=== PATIENT | female | born 1965 | race Caucasian/White ===

== ENCOUNTER 2017-04-29 11:28 | Inpatient (IN) | payer MEDICAID ==
[~2017-04-29] VITALS: Ht 165.1 cm; Wt 120.9 kg
[~2017-04-29 11:28] MED LIST: norco; soma
[2017-04-29 12:10] LABS: Basophils # (auto) 0 uL; Basophils % (auto) 0.8 % (0.0-2.0); Eosinophils # (auto) 0.3 uL; Eosinophils % (auto) 4.1 % (0.0-7.0); Hematocrit 41.3 % (36.0-46.0); Hemoglobin 13.6 g/dL (12.2-16.2); Lymphocytes # (auto) 1.4 uL; Lymphocytes % (auto) 22.1 % (10.0-50.0); Mean Corpuscular Hemoglobin 30.5 pg (28.0-32.0); Mean Corpuscular Volume 92.5 fL (80.0-100.0); Monocytes # (auto) 0.4 uL; Monocytes % (auto) 7.1 % (0.0-12.0); Neutrophils # (auto) 4.2 uL; Neutrophils % (auto) 65.9 % (37.0-80.0); Platelet Count (auto) 310 10^3/uL (140-450); Red Cell Distribution Width 13.2 % (11.8-14.3); White Blood Cell 6.3 10^3/uL (4.4-10.8)
[2017-04-29] MEDS ORDERED: SODIUM CHLORIDE 0.9% 1,000 ML IV ONE ×2 (12:28)
[2017-04-29] MEDS ORDERED: ALUM & MAG HYDROX-SIMETH LIQ(MAALOX) 30 ML PO ONE (12:30)
[2017-04-29] MEDS ORDERED: LIDOCAINE VISCOUS 2% 15ML UD PO ONE (12:30)
[2017-04-29] MEDS ORDERED: DONNATAL 5ml ORAL Elix (BELLADONNA ALK-PHENOBARB) PO ONE (12:30)
[2017-04-29 12:48] LABS: Albumin 3.8 g/dL (3.4-5.0); Alkaline Phosphatase 118 U/L (45-117); Anion Gap 5 (5-15); Aspartate Aminotransferase 11 U/L (15-37); BUN/Creatinine Ratio 21.1; Bilirubin, Total 0.3 mg/dL (0.2-1.0); Blood Urea Nitrogen 20 mg/dL (7-18); Calcium 9.4 mg/dL (8.5-10.1); Carbon Dioxide 27 mmol/L (21-32); Chloride 104 mmol/L (98-107); GFR African American 79 mL/min; GFR Non-African American 65 mL/min; Glucose 123 mg/dL (74-106); Potassium 3.7 mmol/L (3.5-5.1); Sodium 136 mmol/L (136-145); Total Protein 8.5 g/dL (6.4-8.2)
[2017-04-29] MEDS ORDERED: IOHEXOL 350 MG/ML 100ML IJ ONE (14:04)
[2017-04-29 14:11] LABS: Urine RBC None Seen /hpf (0 - 4)
[2017-04-29 14:27] LABS: Urine Bilirubin Negative (Negative); Urine Blood Negative /uL (Negative); Urine Color Yellow (Yellow); Urine Glucose Normal (Normal); Urine Ketone Negative (Negative); Urine Nitrite Negative (Negative); Urine Squamous Epithelial Cell FEW /hpf (<5); Urine Urobilinogen Normal (Negative); Urine pH 7.5 (5.0-8.0)
[2017-04-29] MEDS ORDERED: cefTRIAXone 1GM/50ML D5W 50 ML IV ONE (15:15)
[2017-04-29] MEDS ORDERED: ACETAMINOPHEN 500 MG TAB PO PRN (16:30)
[2017-04-29] MEDS ORDERED: NITROGLYCERIN 0.4 MG SL TAB SL PRN (16:30)
[2017-04-29] MEDS ORDERED: PROMETHAZINE HCL 25 MG/ML 1ML IV PRN (16:30)
[2017-04-29] MEDS ORDERED: LEVOFLOXACIN 500MG 100 ML IV ONE (16:30)
[2017-04-29] MEDS ORDERED: LORazepam 0.5 MG TAB PO PRN (16:30)
[2017-04-29] MEDS ORDERED: LACTULOSE 20Gm/30ML SOLN PO PRN (16:30)
[2017-04-29] MEDS ORDERED: MORPHINE SULF INJ 2 MG/ML SYRINGE 1ML IV PRN ×2 (16:30)
[2017-04-29] MEDS: FAMOTIDINE (10MG/ML) 2ML VL IV SCH ×2 (16:49→21:03)
[2017-04-29] MEDS: HYDROcodone-ACET 5/325MG TAB PO PRN (17:04)
[2017-04-29] MEDS ORDERED: AMIT25TA9 PO (19:00)
[2017-04-29] MEDS ORDERED: GEMF600T3 PO (19:00)
[2017-04-29] MEDS ORDERED: CETI1CAP OR (19:00)
[2017-04-29] MEDS ORDERED: GABA-497 PO (19:00)
[2017-04-29] MEDS ORDERED: MULT1TAB61 PO (19:00)
[2017-04-29] MEDS ORDERED: CYCL1TAB18 PO (19:00)
[2017-04-29 19:07] LABS: INR 0.98 (0.9-1.15); Partial Thromboplastin Time 27.7 sec (22.64-33.71); Prothrombin Time 10.7 sec (9.37-12.3)
[2017-04-29] MEDS: METOPROLOL TARTRATE 25 MG TAB PO SCH (21:05)
[2017-04-29] MEDS: GABAPENTIN 300 MG CAP PO SCH (21:05)
[2017-04-29] MEDS: SODIUM CHLOR 0.9% PF (SALINE LOCK) 10ML VIAL IV SCH (21:05)
[2017-04-29 21:48] VITALS: BP 142/81
[2017-04-30] MEDS: HYDROcodone-ACET 5/325MG TAB PO PRN ×4 (00:26→20:38)
[2017-04-30 05:30] VITALS: BP 103/66
[2017-04-30] MEDS: SODIUM CHLOR 0.9% PF (SALINE LOCK) 10ML VIAL IV SCH ×3 (06:00→22:37)
[2017-04-30] MEDS: GABAPENTIN 300 MG CAP PO SCH ×3 (06:57→22:37)
[2017-04-30 07:46] LABS: Cholesterol 168 mg/dL (< 200); HDL Cholesterol 44 mg/dL (40-59); LDL Cholesterol 110 mg/dL (< 100); Triglycerides 141 mg/dL (< 150)
[2017-04-30 09:00] VITALS: BP 93/52
[2017-04-30] MEDS: ASPirin 81 mg TAB PO SCH (09:44)
[2017-04-30] MEDS: LEVOFLOXACIN 500MG 100 ML IV SCH (09:44)
[2017-04-30] MEDS: ENOXAPARIN SOD 40 MG/0.4 ML SYRINGE SC SCH (09:44)
[2017-04-30] MEDS: METOPROLOL TARTRATE 25 MG TAB PO SCH ×2 (09:44→22:00)
[2017-04-30] MEDS ORDERED: KETOROLAC TROMETH 30 MG/ML 1ML VIAL IV PRN (10:15)
[2017-04-30 13:00] VITALS: BP 116/58
[2017-04-30] MEDS: BACLOFEN 10 MG TAB PO SCH ×2 (14:32→22:37)
[2017-04-30 17:07] VITALS: BP 106/61
[2017-04-30 22:18] VITALS: BP 105/63
[2017-04-30] MEDS: TEMAZEPAM 15 MG CAP PO PRN (22:47)
[2017-05-01] MEDS: HYDROcodone-ACET 5/325MG TAB PO PRN ×3 (04:27→19:02)
[2017-05-01 05:00] VITALS: BP 104/67
[2017-05-01] MEDS: SODIUM CHLOR 0.9% PF (SALINE LOCK) 10ML VIAL IV SCH ×2 (06:00→14:32)
[2017-05-01 06:10] LABS: Basophils # (auto) 0 uL; Basophils % (auto) 0.6 % (0.0-2.0); Eosinophils # (auto) 0.3 uL; Eosinophils % (auto) 4.3 % (0.0-7.0); Hematocrit 39.1 % (36.0-46.0); Hemoglobin 12.8 g/dL (12.2-16.2); Lymphocytes # (auto) 1.7 uL; Lymphocytes % (auto) 24.9 % (10.0-50.0); Mean Corpuscular Hemoglobin 30.8 pg (28.0-32.0); Mean Corpuscular Hgb Conc. 32.8 g/dL (32.0-36.0); Mean Platelet Volume 8.5 fL (6.9-10.8); Monocytes # (auto) 0.5 uL; Neutrophils # (auto) 4.2 uL; Neutrophils % (auto) 62.2 % (37.0-80.0); Nucleated Red Blood Cells % 0.1 %; Platelet Count (auto) 216 10^3/uL (140-450); Red Cell Distribution Width 13.1 % (11.8-14.3); White Blood Cell 6.8 10^3/uL (4.4-10.8)
[2017-05-01 06:33] LABS: Albumin 3.3 g/dL (3.4-5.0); Calcium 9.2 mg/dL (8.5-10.1); Potassium 4.2 mmol/L (3.5-5.1)
[2017-05-01] MEDS: GABAPENTIN 300 MG CAP PO SCH ×3 (06:42→22:01)
[2017-05-01] MEDS: BACLOFEN 10 MG TAB PO SCH ×3 (06:42→22:01)
[2017-05-01 06:45] LABS: BUN/Creatinine Ratio 22.9; Bilirubin, Total 0.3 mg/dL (0.2-1.0); Total Protein 7.4 g/dL (6.4-8.2)
[2017-05-01 08:03] VITALS: BP 106/64
[2017-05-01] MEDS: METOPROLOL TARTRATE 25 MG TAB PO SCH ×2 (10:00→22:01)
[2017-05-01] MEDS: ASPirin 81 mg TAB PO SCH (10:01)
[2017-05-01] MEDS: LEVOFLOXACIN 500MG 100 ML IV SCH (10:01)
[2017-05-01] MEDS: ENOXAPARIN SOD 40 MG/0.4 ML SYRINGE SC SCH (10:01)
[2017-05-01] MEDS: PANTOPRAZOLE 40 MG TAB PO SCH (10:01)
[2017-05-01 13:32] VITALS: BP 111/62
[2017-05-01 16:44] VITALS: BP 106/64
[2017-05-01 17:00] VITALS: BP 120/64
[2017-05-01 22:00] VITALS: BP 132/75
[2017-05-01] MEDS: TEMAZEPAM 15 MG CAP PO PRN (22:02)
[2017-05-02] MEDS: HYDROcodone-ACET 5/325MG TAB PO PRN ×3 (03:07→16:06)
[2017-05-02] MEDS: SODIUM CHLOR 0.9% PF (SALINE LOCK) 10ML VIAL IV SCH ×3 (03:07→15:33)
[2017-05-02 05:00] VITALS: BP 105/66
[2017-05-02] MEDS: BACLOFEN 10 MG TAB PO SCH ×2 (06:10→15:32)
[2017-05-02] MEDS: GABAPENTIN 300 MG CAP PO SCH ×2 (06:10→15:32)
[2017-05-02 06:59] LABS: B-Type Natriuretic Peptide < 5.0 pg/mL (0-100); Temperature: 21.8 C (20.0-25.0)
[2017-05-02 09:00] VITALS: BP 198/67
[2017-05-02] MEDS: ASPirin 81 mg TAB PO SCH (09:15)
[2017-05-02] MEDS: LEVOFLOXACIN 500MG 100 ML IV SCH (09:15)
[2017-05-02] MEDS: PANTOPRAZOLE 40 MG TAB PO SCH (09:15)
[2017-05-02] MEDS: ENOXAPARIN SOD 40 MG/0.4 ML SYRINGE SC SCH (09:15)
[2017-05-02] MEDS ORDERED: ADENOSINE 102 MG in GIVE UN-DILUTED 0 ML IV ONE (09:15)
[2017-05-02] MEDS: METOPROLOL TARTRATE 25 MG TAB PO SCH (09:16)
[2017-05-02 11:09] VITALS: BP 99/67
[2017-05-02 13:00] VITALS: BP 110/70
[2017-05-02 17:00] VITALS: BP 107/62
== END 2017-05-02 18:06 | disposition home or self-care (01) | DRG 241 ==
LOC: ER 11:28 → TELE 11:29 → TELE-EAST 17:45
PROVIDERS: ADMIT Internal Medicine; ATTEND Internal Medicine
DX: K29.70 Gastritis, unspecified, without bleeding (principal); J90 Pleural effusion, not elsewhere classified; K76.0 Fatty (change of) liver, not elsewhere classified; R07.89 Other chest pain; K43.9 Ventral hernia without obstruction or gangrene; G57.92 Unspecified mononeuropathy of left lower limb; G89.29 Other chronic pain; E66.01 Morbid (severe) obesity due to excess calories; K21.9 Gastro-esophageal reflux disease without esophagitis; M54.9 Dorsalgia, unspecified; R91.1 Solitary pulmonary nodule; Z90.710 Acquired absence of both cervix and uterus; Z79.82 Long term (current) use of aspirin; Z79.899 Other long term (current) drug therapy; Z84.1 Family history of disorders of kidney and ureter; Z82.49 Family history of ischemic heart disease and other diseases of the circulatory system; Z82.3 Family history of stroke; Z83.3 Family history of diabetes mellitus; Z68.41 Body mass index [BMI] 40.0-44.9, adult
CPT/HCPCS: 36415; 71010; 71275; 74176; 80053; 80061; 80307; 81001; 82150; 82550; 83690; 83880; 84484; 85025; 85610; 85652; 85730; 86141; 87040; 93005; 93017; 93306; 94761; 96361; 96365; J0153; J0696; J1956; J3490

== ENCOUNTER 2022-01-10 19:46 | Emergency (ER) | payer MEDICAID ==
[~2022-01-10] VITALS: Ht 165.1 cm; Wt 123.4 kg
[~2022-01-10 19:46] MED LIST changes: +AMIT25TA12 PO; +CETI1CAP OR; +CYCL-839 PO; +GABA300C10 PO; +GEMF-19 PO; +MULT1TAB61 PO; -norco; -soma
[2022-01-10] MEDS ORDERED: KETOROLAC TROMETH 60MG/2ML VIAL IM ONE (23:15)
[2022-01-10] MEDS ORDERED: KETAMINE 50mg/ML 10ml Vial (500mg/10ml) IV ONE (23:30)
[2022-01-10] MEDS ORDERED: PROPOFOL 10 MG/ML 20 ML IV ONE (23:30)
[2022-01-11] MEDS ORDERED: PROPOFOL 100 ML IV ONE (00:05)
[2022-01-11 00:41] VITALS: BP 161/65
== END 2022-01-11 01:52 | disposition home or self-care (01) ==
LOC: ER 19:46
DX: S53.005A Unspecified dislocation of left radial head, initial encounter (principal); S52.122A Displaced fracture of head of left radius, initial encounter for closed fracture; Z90.710 Acquired absence of both cervix and uterus; W18.39XA Other fall on same level, initial encounter; Y93.89 Activity, other specified; Y92.89 Other specified places as the place of occurrence of the external cause; Y99.8 Other external cause status
CPT/HCPCS: 24650; 73060; 73070; 73090; 96372; 99152; 99153; 99285; J1885; J2704

== ENCOUNTER 2023-05-03 16:22 | Emergency (ER) | payer MEDICAID ==
[~2023-05-03] VITALS: Ht 165.1 cm; Wt 116.8 kg
[~2023-05-03 16:22] MED LIST changes: -AMIT25TA12 PO; +AMIT25TA20 PO; +GABA-1250 PO; -GABA300C10 PO; -GEMF-19 PO; +GEMF-66 PO
[2023-05-03 17:53] LABS: Basophils # (auto) 0.1 10 ^3/uL (0-0.2); Basophils % (auto) 0.7 % (0.0-2.0); Eosinophils # (auto) 0.3 10 ^3/uL (0-0.8); Eosinophils % (auto) 3.2 % (0.0-7.0); Lymphocytes # (auto) 2.5 10 ^3/uL (0.4-5.4); Lymphocytes % (auto) 31.3 % (10.0-50.0); Mean Corpuscular Hemoglobin 30.7 pg (28.0-32.0); Mean Corpuscular Hgb Conc. 33.4 g/dL (32.0-36.0); Mean Corpuscular Volume 91.8 fL (80.0-100.0); Monocytes # (auto) 0.6 10 ^3/uL (0-1.3); Monocytes % (auto) 7.1 % (0.0-12.0); Neutrophils # (auto) 4.7 10 ^3/uL (1.6-8.6); Neutrophils % (auto) 57.7 % (37.0-80.0); Nucleated Red Blood Cells % 0.1 %; Red Blood Cells 4.25 10^6/uL (4.0-5.20); Red Cell Distribution Width 13.6 % (11.8-14.3); White Blood Cell 8.1 10^3/uL (4.4-10.8)
[2023-05-03 18:09] LABS: Alanine Aminotransferase 24 U/L (7-40); Albumin 4.8 g/dL (3.2-4.8); Alkaline Phosphatase 118 U/L (46-116); Anion Gap 10 (5-15); Aspartate Aminotransferase 13 U/L (13-40); BUN/Creatinine Ratio 15.2 (10.0-20.0); Bilirubin, Total 0.3 mg/dL (0.2-1.0); Blood Urea Nitrogen 16 mg/dL (9-23); Calcium 10.1 mg/dL (8.5-10.1); Carbon Dioxide 27 mmol/L (20-30); Chloride 101 mmol/L (98-107); Glucose 122 mg/dL (74-106); Potassium 3.6 mmol/L (3.5-5.1); Sodium 138 mmol/L (136-145); Total Protein 7.4 g/dL (5.7-8.2)
[2023-05-03 21:21] LABS: Urine Bacteria NONE SEEN /hpf (None Seen); Urine Blood Negative /uL (Negative); Urine Clarity Clear (Clear); Urine Color Yellow (Yellow); Urine Protein, UAD Negative (Negative); Urine Specific Gravity 1.017 (1.001-1.035); Urine Urobilinogen Normal (Negative); Urine WBC 1 /hpf (0 - 5)
[2023-05-03 22:35] VITALS: BP 150/78; PULSE 78; RESP 17; TEMP 98; O2SAT 98
== END 2023-05-03 23:01 | disposition home or self-care (01) ==
LOC: ER 16:22
DX: B34.9 Viral infection, unspecified (principal); R42 Dizziness and giddiness; Z90.710 Acquired absence of both cervix and uterus; Z79.899 Other long term (current) drug therapy
CPT/HCPCS: 36415; 80053; 81001; 83690; 83880; 84484; 85025; 93005